=== PATIENT | male | born 1945 | race Caucasian/White ===

== ENCOUNTER → 2019-12-21 | Outpatient (CLI) | payer MEDICARE ==
--- NOTE | 2019-12-21 15:23 | US ---
EXAMINATION TYPE: US renals and bladder DATE OF EXAM: 12/21/2019 COMPARISON: ct 03/29/2016 CLINICAL HISTORY: R31.9 Hematuria. EXAM MEASUREMENTS: Right Kidney: 11.6 x 5.3 x 4.9 cm Left Kidney: 11.9 x 6.8 x 6.2 cm Right Kidney: No hydronephrosis. Cystic area visualized mid pole measuring 1.4 x 1.2 x 1.1 cm. Echoge debby area visualized measuring 1.1 cm may be a nonobstructing stone. Left Kidney: No hydronephrosis. Cystic areas visualized, possible tiny parapelvic cysts, largest paco uring 0.7 cm Bladder: Probable 3cm diverticulum visualized There is no evidence for hydronephrosis at this point in time. The urinary bladder is anechoic. IMPRESSION: 1. Bilateral renal cysts. 2. 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 3. Nonobstructing right renal stone
== END | disposition home or self-care (01) ==
LOC: RADUSWWP 14:12
PROVIDERS: ATTEND Internal Medicine
DX: N28.1 Cyst of kidney, acquired (principal); N20.0 Calculus of kidney
CPT/HCPCS: 76770

== ENCOUNTER → 2021-01-11 | Outpatient (CLI) | payer MEDICARE ==
--- NOTE | 2021-01-14 11:41 | CT ---
EXAMINATION TYPE: CT urogram wo/w con DATE OF EXAM: 01/11/2021 COMPARISON: 03/29/2014 HISTORY: Gross hematuria. History of bladder cancer. CT DLP: 4204 mGycm Automated exposure control for dose reduction was used. Contrast: None Technique: Axial images 5 mm thick sections. Pre and postcontrast imaging is performed. Delayed image s were obtained. Three-D reconstructed images performed on a separate computer by the technologist guilherme foreman presented. FINDINGS: Limited CT sections are obtained through the lung bases which are clear. Coronary artery calcification is noted There is a 0.6 cm calcification in the posterior right kidney without obstruction punctate calcificat ions at the inferior pole right kidney measuring 0.3 cm without obstruction. Aortic calcification is noted. The appendix is visualized is normal. Fecal debris is within the colon. Prostate is prominent. Liver and spleen appear unremarkable without masses or cysts. Adrenal glands normal. Pancreas is norm al. Gallbladder is normal. Loops of bowel without contrast are normal. Small peripelvic cysts are wit hin the right kidney. No hydronephrosis or hydroureter is evident within either kidney. Ureters follo w a normal caliber course and contour to the urinary bladder. 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 Three-D reconstructed images are performed. Jethro al calyces infundibula and renal pelves appear normal. Ureters as visualized appear normal. There is incomplete visualization of the left ureter. Right urinary bladder diverticulum is evident. On delaye d images the urinary bladder as visualized appears within normal limits. No obvious filling defects a re evident. Urinary bladder wall appears stable. Subtle irregularity along the posterior inferior uri nary bladder could be related to the patient's prostate hypertrophy or urinary bladder tumor. This is stable from the comparison study. Recurrent masses are not identified. IMPRESSION: 1. STABLE APPEARANCE OF THE URINARY BLADDER. MILD WALL IRREGULARITY ON THE POSTERIOR INFERIOR ASPECT IS UNCHANGED FROM 2014. URINARY BLADDER DIVERTICULUM REMAINS PRESENT ON THE RIGHT. 2. RENAL COLLECTING SYSTEM AND CT UROGRAM IMAGES APPEAR NORMAL. 3. POSTERIOR HYPERTROPHY
== END | disposition home or self-care (01) ==
LOC: RADCTMAIN 15:23
PROVIDERS: ATTEND Urology
DX: C67.9 Malignant neoplasm of bladder, unspecified (principal); N40.0 Benign prostatic hyperplasia without lower urinary tract symptoms
CPT/HCPCS: 74178; 74400; Q9967

== ENCOUNTER → 2021-08-06 | Outpatient (CLI) | payer MEDICARE ==
--- NOTE | 2021-08-07 12:44 | US ---
EXAMINATION TYPE: US kidneys/renal and bladder DATE OF EXAM: 08/06/2021 COMPARISON: CLINICAL HISTORY: R80.9 PROTEIN IN URINE. Hx of bladder cancer. Hx prostate surgery. EXAM MEASUREMENTS: Right Kidney: 11.1 x 5.2 x 5.7 Left Kidney: 11.4 x 4.8 x 5.5 Right Kidney: Medial cystic lesion in pelvis= 1.3 x 1.3 x 1.1 cm. Echogenic focus= 0.8 cm. Left Kidney: Cystic lesion in pelvis = 1.0 x 0.9 x 0.9 cm. Lower pole cystic lesion - 1.5 x 1.1 x 1. 2 cm Bladder: Lesion vs part of prostate = 1.5 x 1.4 x 1.2 cm. Possible diverticulum = 3.1 x 2.6 x 3.2 cm Bilateral Jets not seen IMPRESSION: 1. Nonobstructing right renal calcification. 2. Bilateral renal cysts 3. Urinary bladder diverticulum. 4. There appears to be soft tissue density within the urinary bladder. Extension from the prostate or located within the urinary bladder is unclear. Additional workup is recommended
== END | disposition home or self-care (01) ==
LOC: RADUSWWP 15:26
PROVIDERS: ATTEND Internal Medicine
DX: N28.89 Other specified disorders of kidney and ureter (principal); N28.1 Cyst of kidney, acquired; N32.3 Diverticulum of bladder; Z85.51 Personal history of malignant neoplasm of bladder
CPT/HCPCS: 76770

== ENCOUNTER → 2022-01-23 | Outpatient (CLI) | payer MEDICARE ==
--- NOTE | 2022-01-23 15:41 | CT ---
EXAMINATION TYPE: CT abdomen pelvis wo con DATE OF EXAM: 01/23/2022 COMPARISON: CT dated 01/11/2021 HISTORY: Calculus of kidney, RT side CT DLP: 526 mGycm Automated exposure control for dose reduction was used. TECHNIQUE: Helical acquisition of images was performed from the lung bases through the pelvis. FINDINGS: LUNG BASES: No significant abnormality is appreciated. LIVER/GB: No significant abnormality is appreciated. PANCREAS: No significant abnormality is seen. SPLEEN: No significant abnormality is seen. ADRENALS: No significant abnormality is seen. KIDNEYS: 9 mm nonobstructing stone is seen at the mid pole of the right kidney. Persistent urinary bl adder diverticulum, likely involving the right ureterovesical junction, appreciated previously. 7 mm stone is seen within the urinary bladder likely impacted at the right ureterovesical junction. No oth er definite radiodense urinary calculi. No left-sided hydroureter and hydronephrosis. Suspected left renal cysts without gross suspicious feature. Thickened urinary bladder wall with trabeculation, prob ably related to chronic urinary outflow obstruction. Associated infection cannot be excluded. Bulky p rostate. Unremarkable seminal vesicles. FREE AIR: No free air is visualized RETROPERITONEAL ADENOPATHY: None visualized PELVIC ADENOPATHY: No pathologically enlarged pelvic lymph nodes. OSSEOUS STRUCTURES: Degenerative changes of the lower lumbar spine, sacroiliac joints and hip joints . BOWEL: Unremarkable stomach, duodenum and small bowel. Scattered segments of mild colonic wall thick ening, nonspecific. Recommend correlation with colonoscopy results. Normal appendix. OTHER: Scattered arterial atherosclerotic calcifications. No sizable ascites. Fat-containing umbilica l hernia. Fat-containing left inguinal hernia. IMPRESSION: Persistent urinary bladder diverticulum at the location of the right ureterovesical junction with new ly seen 7 mm stone likely impacted at the right ureterovesical junction as described above. Recommend clinical correlation and urology consultation as associated infection can't be excluded. Other findi ngs as described above.
== END | disposition home or self-care (01) ==
LOC: RADCTMAIN 12:20
PROVIDERS: ATTEND Urology
DX: N20.0 Calculus of kidney (principal); N32.3 Diverticulum of bladder
CPT/HCPCS: 74176

== ENCOUNTER → 2022-03-12 | Outpatient (CLI) | payer MEDICARE ==
[2022-03-12 14:40] LABS: Basophils # (A) 0.07 X 10*3/uL (0.00-0.10); Basophils % (A) 0.8 %; Eosinophils # (A) 0.18 X 10*3/uL (0.04-0.35); Eosinophils % (A) 2.2 %; HCT 45.9 % (39.6-50.0); HGB 14.8 g/dL (13.0-17.0); Immature Grans, Automated 0.4 %; Lymphocytes # (A) 2.91 X 10*3/uL (0.90-5.00); Lymphocytes % (A) 35.1 %; MCHC 32.2 g/dL (32.0-37.0); MCV 86.8 fL (80.0-97.0); Mean Platelet Volume 11.4 fL (9.5-12.2); Monocytes # (A) 0.47 X 10*3/uL (0.20-1.00); Monocytes % (A) 5.7 %; NRBC Per 100 WBC 0 /100 WBCS (0.0-0.0); Neutrophils # (A) 4.62 X 10*3/uL (1.80-7.70); Neutrophils % (A) 55.8 %; Platelet Count 172 X 10*3/uL (140-440); RBC 5.29 X 10*6/uL (4.40-5.60); RDW 14.5 % (11.5-14.5); WBC 8.28 X 10*3/uL (4.50-10.00)
[2022-03-12 14:51] LABS: African American GFR (CKD) 64.1 (60.0-200.0); Anion Gap 9.6 mmol/L (10.00-18.00); BUN/Creat Ratio 16.53 Ratio (12.00-20.00); Blood Urea Nitrogen 20.5 mg/dL (9.0-27.0); Calcium 9.6 mg/dL (8.7-10.3); Carbon Dioxide 26.4 mmol/L (20.0-27.5); Non-African American GFR(CKD) 55.3 (60.0-200.0); Potassium 4.4 mmol/L (3.5-5.5)
== END | disposition home or self-care (01) ==
LOC: LABPAT 10:53
PROVIDERS: ATTEND Urology
DX: Z01.812 Encounter for preprocedural laboratory examination (principal); N20.1 Calculus of ureter
CPT/HCPCS: 80048; 85025